=== PATIENT | female | born 1980 ===

== ENCOUNTER 2017-03-28 18:21 | Emergency (ER) | payer MEDICAID ==
[2017-03-28 18:40] VITALS: RESP 18; TEMP 98.2
[2017-03-28] MEDS ORDERED: Albuterol-Ipratrop 3 mg / 0.5 (3 ml) UD IH STA ×3 (18:47→21:05)
--- NOTE | 2017-03-28 18:52 | ED PDOC ---
Arrival/HPI - General Historian: Patient <Soren Obregon A - Last Filed: 03/28/17 21:16> <Jacoby Mackey - Last Filed: 03/28/17 21:53> - General Chief Complaint: Cough, Cold, Congestion Time Seen by Provider: 03/28/17 18:43 - History of Present Illness Narrative History of Present Illness (Text): 03/28/17 18:48 37yo female with PMHx of Asthma who present with 2days history of nonproductive cough, SOB and wheezing. States she was treated for Flu 3weeks ago which triggered her Asthma then. the symptom resolved and started again yesterday. States she is currently visiting her sister from [place]. she used her inhaler 3times today with temporary relieve. She denies fever, chills, sick contact, any other complaint. (Soren Obregon A) Past Medical History - Provider Review Nursing Documentation Reviewed: Yes - Infectious Disease Hx of Infectious Diseases: None - Pulmonary Hx Asthma: Yes - Psychiatric Hx Substance Use: No <Soren Obregon A - Last Filed: 03/28/17 21:16> Family/Social History - Physician Review Nursing Documentation Reviewed: Yes Family/Social History: Unknown Family HX Smoking Status: Never Smoked Hx Alcohol Use: No Hx Substance Use: No <Soren Obregon A - Last Filed: 03/28/17 21:16> Allergies/Home Meds <Soren Obregon A - Last Filed: 03/28/17 21:16> <Jacoby Mackey - Last Filed: 03/28/17 21:53> Allergies/Adverse Reactions: Allergies codeine Allergy (Verified 03/28/17 18:41) ANAPHYLAXIS Sulfa (Sulfonamide Antibiotics) Allergy (Verified 03/28/17 18:41) ANAPHYLAXIS sulfamethoxazole [From Bactrim] Allergy (Verified 03/28/17 18:41) ANAPHYLAXIS trimethoprim [From Bactrim] Allergy (Verified 03/28/17 18:41) ANAPHYLAXIS Review of Systems - Physician Review All systems were reviewed & negative as marked: Yes - Review of Systems Constitutional: Normal Eyes: Normal ENT: Normal Respiratory: SOB, Cough, Wheezing. absent: Sputum Cardiovascular: Normal Gastrointestinal: Normal Genitourinary Female: Normal Musculoskeletal: Normal Skin: Normal Neurological: Normal Endocrine: Normal Hemo/Lymphatic: Normal Psychiatric: Normal <MindiSoren A - Last Filed: 03/28/17 21:16> Physical Exam Vital Signs Reviewed: Yes Temperature: Afebrile Blood Pressure: Normal Pulse: Regular Respiratory Rate: Normal Appearance: Positive for: Well-Appearing, Non-Toxic, Comfortable Pain Distress: None Mental Status: Positive for: Alert and Oriented X 3 - Systems Exam Head: Present: Atraumatic, Normocephalic Pupils: Present: PERRL Extroacular Muscles: Present: EOMI Conjunctiva: Present: Normal Mouth: Present: Moist Mucous Membranes Neck: Present: Normal Range of Motion Respiratory/Chest: Present: Clear to Auscultation, Good Air Exchange, Decreased Breath Sounds (Mild decreased BS). No: Respiratory Distress, Accessory Muscle Use, Wheezes, Rales, Retracting, Rhonchi Cardiovascular: Present: Regular Rate and Rhythm, Normal S1, S2. No: Murmurs Abdomen: Present: Normal Bowel Sounds. No: Tenderness, Distention, Peritoneal Signs Back: Present: Normal Inspection Upper Extremity: Present: Normal Inspection. No: Cyanosis, Edema Lower Extremity: Present: Normal Inspection. No: Edema Neurological: Present: GCS=15, CN II-XII Intact, Speech Normal Skin: Present: Warm, Dry, Normal Color. No: Rashes Psychiatric: Present: Alert, Oriented x 3, Normal Insight, Normal Concentration <Soren Obregon A - Last Filed: 03/28/17 21:16> Vital Signs Temp Pulse Resp BP Pulse Ox 03/28/17 18:38 98.2 F 97 H 18 119/86 100 Medical Decision Making <Soren Obregon A - Last Filed: 03/28/17 21:16> Reassessment Condition: Improved <Jacoby Mackey - Last Filed: 03/28/17 21:53> ED Course and Treatment: 03/28/17 21:14 On re evaluation pt improved, but still have some decrease BS diffusely. Another treatment was ordered. CXR pending. Case endorsed to Dr. Cerna to re evaluate pt, f/u CXR and dispo accordingly. (Soren Obregon A) 03/28/17 21:49 signed out to fu cxr/disposition. you have history of Asthma and who present with 2days history of nonproductive cough, SOB and wheezing. States was treated for Flu 3weeks ago which triggered her Asthma then. the symptom resolved and started again yesterday. States is currently visiting her sister from [place]. she used her inhaler 3times today with temporary relieve. denies fever, chills, sick contact, any other complaint. no fever 98.2, stable heart rate 97, stable breathing rate 18, stable blood pressure 119/86, excellent oxygen level 100%, negative test, chest xray with mild markings bronchitis/early pneumonia and recommend prednisone, albuterol, and azithromycin as directed for infection control. recommend followup primary care 2-3 days to determine further treatment. if any worsening symptoms or any medical condition then return to the ED. (Jacoby Mackey) - RAD Interpretation Radiology Orders: 03/28/17 18:52 CHEST PORTABLE [RAD] Stat - Medication Orders Current Medication Orders: Discontinued Medications Albuterol/Ipratropium (Duoneb 3 Mg/0.5 Mg (3 Ml) Ud) 3 ml IH STAT STA Stop: 03/28/17 18:48 Last Admin: 03/28/17 19:59 Dose: 3 ml Albuterol/Ipratropium (Duoneb 3 Mg/0.5 Mg (3 Ml) Ud) 3 ml IH STAT STA Stop: 03/28/17 18:54 Last Admin: 03/28/17 19:59 Dose: 3 ml Albuterol/Ipratropium (Duoneb 3 Mg/0.5 Mg (3 Ml) Ud) 3 ml IH STAT STA Stop: 03/28/17 21:06 Prednisone (Prednisone Tab) 60 mg PO STAT ONE Stop: 03/28/17 18:48 Last Admin: 03/28/17 19:59 Dose: 60 mg Promethazine HCl/Dextromethorphan (Phenergan Dm Syrup) 5 ml PO ONCE STA Stop: 03/28/17 21:06 Disposition/Present on Arrival - Present on Arrival Any Indicators Present on Arrival: No History of DVT/PE: No History of Uncontrolled Diabetes: No Urinary Catheter: No History of Decub. Ulcer: No History Surgical Site Infection Following: None - Disposition Have Diagnosis and Disposition been Completed?: Yes <Soren Obregon - Last Filed: 03/28/17 21:16> - Disposition Have Diagnosis and Disposition been Completed?: Yes Disposition Time: 21:52 Patient Plan: Discharge <Jacoby Mackey - Last Filed: 03/28/17 21:53> - Disposition Diagnosis: Asthma attack, Bronchitis Disposition: HOME/ ROUTINE Patient Problems: Current Active Problems Problem Status Onset Asthma attack Acute Condition: IMPROVED Additional Instructions: triggered her Asthma then. the symptom resolved and started again yesterday. is currently visiting her sister from [place]. she used her inhaler 3times today with temporary relieve. denies fever, chills, sick contact, any other complaint. no fever 98.2, stable heart rate 97, stable breathing rate 18, stable blood pressure 119/86, excellent oxygen level 100%, negative test, chest xray with mild markings bronchitis/early pneumonia and recommend prednisone, albuterol, and azithromycin as directed for infection control. recommend followup primary care 2-3 days to determine further treatment. if any worsening symptoms or any medical condition then return to the ED. Prescriptions: Albuterol HFA [Ventolin HFA 90 mcg/actuation (8 g)] 2 puff IH [id number] #1 ea Azithromycin [Z-Farhad] 250 mg PO DAILY 5 Days #6 tab Prednisone [Deltasone] 20 mg PO DAILY 5 Days #5 tablet Referrals: [facility] Alvarado, [Primary Care Provider] - Follow up with primary Forms: [employer] (Macedonian)
[2017-03-28] MEDS ORDERED: Promethazine DM 6.25 mg-15 mg/5 ml Syrup PO STA (21:05)
[2017-03-29 05:19] VITALS: BP 118/83; PULSE 87; O2SAT 99
--- NOTE | 2017-03-29 10:27 | RAD ---
HISTORY: cough COMPARISON: No prior. FINDINGS: LUNGS: Prominent pulmonary markings compatible with lower airways disease, bronchitis. No discrete infiltrates PLEURA: No significant pleural effusion identified, no pneumothorax apparent. CARDIOVASCULAR: Normal. OSSEOUS STRUCTURES: No significant abnormalities. VISUALIZED UPPER ABDOMEN: Normal. OTHER FINDINGS: None. IMPRESSION: Increased interstitial markings compatible with lower airways disease. No discrete pulmonary infiltrates.
== END 2017-03-28 22:05 | disposition home or self-care (01) ==
LOC: ED 18:21
DX: J45.909 Unspecified asthma, uncomplicated (principal)